=== PATIENT | male | born 1950 | race Caucasian/White ===

== ENCOUNTER 2023-12-22 09:29 | Emergency (ER) | payer MEDICARE, OTHER ==
[2023-12-22] MEDS ORDERED: Sodium Chloride 0.9% 10 ML Syringe FLUSH PRN (09:58)
[2023-12-22 10:18] LABS: BASOPHILS ABSOLUTE AUTO 0.03 K/uL (0.02-0.10); BASOPHILS PERCENT AUTO 0.4 % (0.0-0.5); EOSINOPHILS ABSOLUTE AUTO 0.07 K/uL (0.04-0.40); EOSINOPHILS PERCENT AUTO 0.9 % (1.0-5.0); HEMATOCRIT 45.8 % (40.0-54.0); HEMOGLOBIN 15.2 g/dL (13.0-18.0); LYMPHOCYTES ABSOLUTE AUTO 1.82 K/uL (1.50-4.00); LYMPHOCYTES PERCENT AUTO 22.5 % (20.0-40.0); MEAN CORPUSCULAR HEMOGLOBIN 32.7 pg (27.0-32.0); MEAN CORPUSCULAR HGB CONC 33.2 g/dL (31.0-35.0); MEAN CORPUSCULAR VOLUME 99 fL (76-96); MEAN PLATELET VOLUME 9.2 fL (6.0-10.0); MONOCYTES PERCENT AUTO 12.4 % (3.0-10.0); NEUTROPHILS ABSOLUTE AUTO 5.16 K/uL (2.00-7.50); NEUTROPHILS PERCENT AUTO 63.8 % (45.0-70.0); PLATELET COUNT,PLT 179 K/uL (150-400); RED BLOOD CELL COUNT 4.65 M/uL (4.50-6.50); WHITE BLOOD CELL COUNT,WBC 8.1 K/uL (4.0-11.0)
[2023-12-22 10:22] LABS: INR 1.8 (1.0-3.5)
[2023-12-22 10:25] LABS: PROTHROMBIN TIME 18.3 sec (9.0-11.5)
[2023-12-22 10:30] LABS: ALBUMIN 3.4 g/dL (3.4-5.0); ANION GAP 11.9 mmol/L (5.0-15.0); BILIRUBIN TOTAL 0.6 mg/dL (0.0-1.0); BUN/CREATININE RATIO 14.4 (6-25); CALCIUM 8.6 mg/dL (8.5-10.1); CARBON DIOXIDE,CO2 25.1 mmol/L (21.0-32.0); CREATININE 1.25 mg/dL (0.70-1.30); EST CRCL DRUG DOSING (CG) 58.59 mL/min; PROTEIN TOTAL,TP 6.7 g/dL (6.4-8.2); TROPONIN I HIGH SENSITIVITY 8.7 pg/ml (<=60.4)
[2023-12-22] MEDS: Diltiazem 120 MG Cap.CD PO ONE (10:37)
== END 2023-12-22 12:00 | disposition home or self-care (01) ==
LOC: LB.ED 09:29
DX: I48.91 Unspecified atrial fibrillation (principal); I25.10 Atherosclerotic heart disease of native coronary artery without angina pectoris
CPT/HCPCS: 36415; 80053; 84443; 84484; 85025; 85610; 93005; 99285; A9270